=== PATIENT | female | born 1960 | race Caucasian/White ===

== ENCOUNTER 2017-07-16 10:52 | Emergency (ER) | payer OTHER ==
[2017-07-16 10:57] VITALS: TEMP 98.7
--- NOTE | 2017-07-16 12:14 | C.PDOC ---
History Of Present Illness 57 yo female come in for evaluation of Right wrist/hand, Right hip area developed since early today after sustained mechanical fall. Pt reports, " slipped on ice and landed onto Right side". Pain localized over injured area, worse with movement. Otherwise, pt denies head injury, LOC, syncope, headache, dizziness, neck pain, CP, SOB, abd. pain, V/D, back pain, denies obvious deformity, weakness, sensory or vascular deficits to B/L UEs and LEs. Ambulate to Ed for evaluation with stable gait, not in any apparent distress. Time Seen by Provider: 07/16/17 11:23 Chief Complaint (Nursing): Upper Extremity Problem/Injury History Per: Patient History/Exam Limitations: no limitations Onset/Duration Of Symptoms: Sudden Onset (since morning) Current Symptoms Are (Timing): Still Present Past Medical History Reviewed: Historical Data, Nursing Documentation, Vital Signs Vital Signs: Last Vital Signs Temp 98.7 F 07/16/17 10:56 Pulse 78 07/16/17 12:33 Resp 16 07/16/17 12:33 BP 125/78 07/16/17 12:33 Pulse Ox 100 07/16/17 20:03 - Medical History PMH: Anxiety, Depression, Deep Vein Thrombosis Family History: States: No Known Family Hx - Social History Hx Tobacco Use: No Hx Alcohol Use: No Hx Substance Use: No - Immunization History Hx Tetanus Toxoid Vaccination: No Hx Influenza Vaccination: No Hx Pneumococcal Vaccination: No Review Of Systems Except As Marked, All Systems Reviewed And Found Negative. Respiratory: Negative for: Shortness of Breath Gastrointestinal: Negative for: Vomiting, Abdominal Pain, Diarrhea Musculoskeletal: Positive for: Hand Pain (right hand/wrist). Negative for: Neck Pain, Back Pain Neurological: Negative for: Headache, Dizziness Physical Exam - Physical Exam Appears: Well, Non-toxic, No Acute Distress Skin: Normal Color, Warm, Dry, No Rash, No Ecchymosis Head: Atraumatic, Normacephalic Eye(s): bilateral: PERRL Ear(s): Bilateral: Normal Nose: No Flaring, No Deformity, No Tenderness Oral Mucosa: Moist Neck: Trachea Midline, No Midline Cervical Tenderness, No Paracervical Tenderness, No Step Off Deformity, Supple Cardiovascular: Rhythm Regular Respiratory: No Decreased Breath Sounds, No Accessory Muscle Use, No Stridor, No Wheezing Gastrointestinal/Abdominal: Soft, No Tenderness, No Distention, No Guarding Back: No CVA Tenderness, No Vertebral Tenderness, No Paraspinal Tenderness Extremity: Normal ROM (mild discomfort over Right wrist to flexion/extention), Tenderness (Right wrist and hip tenderness), No Deformity, No Swelling Neurological/Psych: Oriented x3, Normal Speech, Normal Motor, Normal Sensation, Normal Reflexes ED Course And Treatment O2 Sat by Pulse Oximetry: 100 (RA) Pulse Ox Interpretation: Normal - Other Rad X-Ray - Right Shoulder X-Ray: Viewed By Me, Read By Radiologist Interpretation: PROCEDURE: Radiographs of the Right Shoulder. HISTORY: injury. COMPARISON: None available. FINDINGS: BONES: No acute displaced fracture. The distal clavicle and underlying ribs appear intact. Degenerative changes. JOINTS: No acute dislocation. High-riding humeral head may be seen in the setting of chronic rotator cuff injury. SOFT TISSUES: Soft tissues appear unremarkable. No evidence of radiopaque foreign body. IMPRESSION: No acute displaced fracture or dislocation evident. If symptoms persist or if there is continued clinical concern, x-ray follow-up in 7-10 days should be considered. Degenerative changes. High-riding humeral head may be seen the setting of chronic rotator cuff injury. X-Ray - Right Elbow X-Ray: Viewed By Me, Read By Radiologist Interpretation: PROCEDURE: Radiographs of the right elbow. HISTORY: injury. COMPARISON: None available. FINDINGS: BONES: No acute displaced fracture. JOINTS: No dislocation. SOFT TISSUES: Unremarkable. No evidence of radiopaque foreign body. JOINT EFFUSION: Small anterior joint effusion without evidence of elevated fat pad. No evidence of posterior fat pad. OTHER FINDINGS: None. IMPRESSION: No acute displaced fracture or dislocation identified. Small anterior joint effusion without evidence of elevated fat pad. No evidence of posterior fat pad. X-Ray - Right Wrist X-Ray: Viewed By Me, Read By Radiologist Interpretation: PROCEDURE: Right Wrist Radiographs. HISTORY: Injury. COMPARISON: None available. FINDINGS: BONES: Evidence of an irregular contour along the distal radius at the carpal radial carpal junction (series 3, image 1) ; fracture is considered. The remainder the visualized osseous structures appear intact. Osseous demineralization. JOINTS: No dislocation. SOFT TISSUES: Mild soft tissue swelling/effusion. No evidence of radiopaque foreign body. OTHER FINDINGS: None. IMPRESSION: Evidence of an irregular contour along the distal radius at the carpal radiocarpal junction ; fracture is considered. Correlate with physical exam. Mild soft tissue swelling/ effusion. Osseous demineralization. Findings discussed with MARGARITA Frederick on at 12:35 p.m. X-Ray - Right Hip w/ Pelvis X-Ray: Viewed By Me, Read By Radiologist Interpretation: Indication: Injury. Right hip with pelvis radiographs. Comparison: CT abdomen pelvis performed 11/06/14. Findings: No acute displaced fracture or dislocation identified. Mild constipation. Degenerative changes including narrowing and osteophyte formation of the pubic symphysis. Soft tissues appear unremarkable. No evidence of radiopaque foreign body. Impression: No acute displaced fracture or dislocation evident. If high clinical index of suspicion, suggest cross-sectional imaging for further evaluation. Otherwise, if symptoms persist or if there is continued clinical concern, x-ray follow-up in 7-10 days should be considered. Progress Note: On re-evaluation, pt is afebrile, hemodynamicaly stable. Non- toxic. Ambulatoryl in ED with stable gait. head: AT/NC. neck: Supple, (-) midline tenderness. ENT: no acute findings. Abd: benign. RUE: exam c/w wrist/ elbow contusion r/o fx. NO obvious deformity. FAROM, no neurovascular deficits. neurologicaly intact. Imaging review (-) acuts fx or dislocation noted. Volar splint applied to Right wrist, sling applied to Right arm. Pt advised. ref. to f/u with PMD, ortho in 2-3 days for re-eval. return to ED if any worsening or new changes. Medical Decision Making Medical Decision Making: PLAN: * X-Ray - Right Shoulder, Right Elbow, Right Wrist, Right Hip w/ Pelvis * Tylenol PO * Tramadol PO Disposition Counseled Patient/Family Regarding: Studies Performed, Diagnosis, Need For Followup, Rx Given - Disposition Referrals: Brian Romero MD [Staff Provider] - Disposition: HOME/ ROUTINE Disposition Time: 12:18 Condition: STABLE Additional Instructions: LIght duty, no physical activity for 1 week ice to contusion RICE-rest, ice, compression ( SPLINT), elevation Take pain medictaion as prescribed Follow up with PMD in 2-3 days for re-evaluation. return to ED if nay worsening or new changes. 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 - Scribe Statement The provider has reviewed the documentation as recorded by the Scribe Chayito Babin All medical record entries made by the Maryibwillis were at my direction and personally dictated by me. I have reviewed the chart and agree that the record accurately reflects my personal performance of the history, physical exam, medical decision making, and the department course for this patient. I have also personally directed, reviewed, and agree with the discharge instructions and disposition.
--- NOTE | 2017-07-16 12:18 | RAD ---
PROCEDURE: Radiographs of the right elbow. HISTORY: injury COMPARISON: None available. FINDINGS: BONES: No acute displaced fracture. JOINTS: No dislocation. SOFT TISSUES: Unremarkable. No evidence of radiopaque foreign body. JOINT EFFUSION: Small anterior joint effusion without evidence of elevated fat pad. No evidence of posterior fat pad. OTHER FINDINGS: None IMPRESSION: No acute displaced fracture or dislocation identified. Small anterior joint effusion without evidence of elevated fat pad. No evidence of posterior fat pad.
[2017-07-16 12:33] VITALS: BP 125/78; PULSE 78; RESP 16
--- NOTE | 2017-07-16 12:38 | RAD ---
PROCEDURE: Right Wrist Radiographs. HISTORY: Injury COMPARISON: None available. FINDINGS: BONES: Evidence of an irregular contour along the distal radius at the carpal radial carpal junction (series 3, image 1) ; fracture is considered. The remainder the visualized osseous structures appear intact. Osseous demineralization. JOINTS: No dislocation. SOFT TISSUES: Mild soft tissue swelling/effusion. No evidence of radiopaque foreign body OTHER FINDINGS: None. IMPRESSION: Evidence of an irregular contour along the distal radius at the carpal radiocarpal junction ; fracture is considered. Correlate with physical exam. Mild soft tissue swelling/effusion. Osseous demineralization. Findings discussed with MARGARITA Frederick on 07/16/17 at 12:35 p.m.
--- NOTE | 2017-07-16 12:46 | RAD ---
Indication: Injury Right hip with pelvis radiographs Comparison: CT abdomen pelvis performed 11/06/14 Findings: No acute displaced fracture or dislocation identified. Mild constipation. Degenerative changes including narrowing and osteophyte formation of the pubic symphysis. Soft tissues appear unremarkable. No evidence of radiopaque foreign body. Impression: No acute displaced fracture or dislocation evident. If high clinical index of suspicion, suggest cross-sectional imaging for further evaluation. Otherwise, if symptoms persist or if there is continued clinical concern, x-ray follow-up in 7-10 days should be considered.
[2017-07-16 20:00] VITALS: O2SAT 100
== END 2017-07-16 12:33 | disposition home or self-care (01) ==
LOC: C.ER 10:52
DX: S60.211A Contusion of right wrist, initial encounter (principal); S70.01XA Contusion of right hip, initial encounter; W00.0XXA Fall on same level due to ice and snow, initial encounter